=== PATIENT | female | born 1995 | race Caucasian/White ===

== ENCOUNTER 2017-08-11 21:33 | Emergency (ER) | payer BC, OTHER ==
[2017-08-11] MEDS ORDERED: AMOXICILLIN TR/POT CLAVULANATE 500-125 MG TAB PO ONE (22:53)
[2017-08-11] MEDS ORDERED: DIPH/PERTUSS(ACELL)/TETANUS VAC/PF 0.5 ML SYR (>=10YO) IM ONE (22:53)
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
[2017-08-12] MEDS ORDERED: LIDOCAINE 1% INJ-PF (10 MG/ML) 30 ML SDV INJ ONE (01:20)
[2017-08-12] MEDS ORDERED: CEFTRIAXONE INJ 250 MG VIAL IM ONE (01:20)
[2017-08-12] MEDS ORDERED: AZITHROMYCIN 250 MG TABLET PO ONE (01:20)
[2017-08-12 01:38] LABS: T.VAGINALIS (WET MOUNT) NO TRICHOMONAS SEEN
[2017-08-12 01:39] LABS: RBCS (WET MOUNT) NO RBCS SEEN; WBCS (WET MOUNT) 2+ WBCS SEEN; YEAST (WET MOUNT) NO YEAST SEEN
[2017-08-12 01:50] LABS: APPEARANCE,URINE CLOUDY; BILIRUBIN,URINE NEGATIVE (NEGATIVE); COLOR,URINE YELLOW; GLUCOSE, URINE NEGATIVE (NEGATIVE); KETONES,URINE NEGATIVE (NEGATIVE); LEUKOCYTE ESTERASE,URINE LARGE (NEGATIVE); NITRITE,URINE POSITIVE (NEGATIVE); PROTEIN,URINE NEGATIVE (NEGATIVE); URINE SPECIFIC GRAVITY 1.024
[2017-08-12 02:28] VITALS: BP 125/79
[2017-08-12 02:59] LABS: CHLAM PCR NOT DETECTED (NOT DETECT); GON PCR NOT DETECTED (NOT DETECT)
== END 2017-08-12 02:31 | disposition home or self-care (01) ==
LOC: ER 21:33
DX: N30.00 Acute cystitis without hematuria (principal); S71.152A Open bite, left thigh, initial encounter; S10.93XA Contusion of unspecified part of neck, initial encounter; Y04.1XXA Assault by human bite, initial encounter
CPT/HCPCS: 99285; 87210; 81025; 81001; 87491; 87591; 90715; J3490; J0696